=== PATIENT | female | born 1975 | race Caucasian/White ===

== ENCOUNTER → 2016-08-24 | Outpatient (CLI) | payer OTHER ==
[2014-05-16 19:11] VITALS: BP 122/75
[~2016-08-24] MED LIST: FLUO10CA13 PO
--- NOTE | 2016-08-24 10:53 | RAD ---
Complete abdominal ultrasound History: Elevated GGT and alkaline phosphatase. Comparison: None. Procedure: Transabdominal ultrasound images are obtained. Findings: Visualized pancreas is unremarkable. Liver is normal in echogenicity. No focal hepatic masses are identified. Right hepatic lobe measures 15.9 cm in length. Gallbladder has an unremarkable appearance. Common bile duct measures normally at 4 mm in diameter. Spleen is unremarkable. Splenic length is 8.6 cm. Right kidney is normal in size and configuration without hydronephrosis. Left kidney is normal in size and configuration without hydronephrosis. Visualized portions of the aorta and IVC have normal caliber. Impression: Unremarkable abdominal ultrasound.
== END | disposition home or self-care (01) ==
LOC: US 09:37
PROVIDERS: ATTEND Family Medicine
DX: R74.8 Abnormal levels of other serum enzymes (principal)
CPT/HCPCS: 76700